=== PATIENT | male | born 1985 | race Caucasian/White ===

== ENCOUNTER 2017-10-22 10:10 | Emergency (ER) | payer MEDICAID ==
--- NOTE | 2017-10-22 10:31 | ED Physician Chart ---
ED Chief Complaint/HPI - Patient Information Date Seen:: 10/22/17 Time Seen:: 10:20 Chief Complaint:: Headache for 2 weeks. History of Present Illness:: Brought in by private auto for the above reason. Pt is Vietnamese speaking. Interpretation is provided by Ivan a nurse at [facility]. Pt has been evaluated at [facility] about 2 weeks ago. DESAI is characterized as constant, bandlike extending from bifrontal to posterior scalp with splastic sensation. Pt has not had any analgesic today. No fever. No N/V/D. No visual changes in terms of blurry vision or diplopia. No weakness or numbness. No ataxia. No h/o head injury. Pt has done a lot of neck bending activities prior to onset of his DESAI. Allergies:: Allergies Allergy/AdvReac Type Severity Reaction Status Date / Time No Known Allergies Allergy Verified 10/22/17 10:20 Vitals:: see Nurse Note. Historian:: Patient Family MD/PCP:: [facility]. LMP:: N/A Review:: Nurse's Note Reviewed ED Review of Systems - Review of Systems General/Constitutional: No fever, No chills, No weight loss, No weakness, No edema Skin: No rash, No bruising Head: Headache, No light-headedness Eyes: No loss of vision, No pain, No diplopia ENT: No earache, No nasal drainage, No sore throat, No tinnitus Neck: No neck pain, No swelling, No thyromegaly, No stiffness, No mass noted Cardio Vascular: No chest pain, No palpitations, No edema Pulmonary: No SOB, No cough, No wheezing GI: No nausea, No vomiting, No diarrhea, No pain Musculoskeletal: No bone or joint pain, No back pain, No muscle pain Endocrine: No polyuria, No polydipsia Psychiatric: No prior psych history Hematopoietic: No bruising, No lymphadenopathy Allergic/Immuno: No urticaria, No angioedema Neurological: No syncope, No focal symptoms, No weakness, No paresthesia, Headache, No dizziness, No confusion, No vertigo ED Past Medical History - Past Medical History Past Medical History: No significant medical hx Family History: Diabetes Melitus (M aunt) Social History: Non Smoker, No Alcohol, No Drug Use, Single, Employed, Other ( lives with his brother.) Employment:: gardening. Surgical History: None Psychiatricy History: None Medication: None Family Medical History - Family Member Maternal History Unknown: Yes ED Physical Exam - Physical Examination General/Constitutional: Awake, Well-developed, well-nourished, Alert, No distress, GCS 15, Non-toxic appearing, Ambulatory Other Gen/Cons comments:: Breathes comfortably, speaks clearly, interacts normally, and ambulates without difficulty. Head: Atraumatic Eyes: Lids, conjuctiva normal, PERRL, EOMI Other Eyes comments:: Fundi: flat disks. Skin: Nl inspection, No rash, No skin lesions, No ecchymosis, Well hydrated, No lymphadenopathy ENMT: External ears, nose nl, TM canals nl, Nasal exam nl, Oropharynx nl Neck: Nontender, Full ROM w/o pain, No nuchal rigidity, No mass, No stridor Respiratory: Nl effort/Exclusion, Clear to Auscultation, No Wheeze/Rhonchi/Rales Cardio Vascular: RRR, No murmur, gallop, rubs GI: No tenderness/rebounding/guarding, No organomegaly, Normal BS's, Nondistended, No mass/bruits Other GI comments:: Abdomen is soft. Extremities: No tenderness or effusion, Full ROM, normal strength in all extremities, No edema Neuro/Psych: Alert/oriented (oriented x 3), DTR's symmetric, Normal sensory exam , Normal motor strength, Judgement/insight normal, Mood normal, Normal gait, No focal deficits Other Neuro/Psych comments:: CN II to XII are grossly intact. Cerebellar exam (F to N, LOCO): normal. ED Septic Shock - . Is Septic Shock (SBP<90, OR Lactate>4 mmol\L) present?: No ED Reassessment (Disposition) - Reassessment Reassessment:: 1130 Pt feels much better. No N/V/D. Pt requests to go home now and does not want further observation/management in hospital. Aftercare instructions have been given. Interpretation has been provided by nurse Love earlier. Reassessment Condition:: Improved - Diagnosis Diagnosis:: Tension DESAI, stable and much improved. - Aftercare/Follow up Instructions Aftercare/Follow-Up Instructions:: Refer to Discharge Instructions Notes:: Bedrest today. Avoid neck bending. May take Tylenol 500 mg tab one tab po q6h prn pain. May also take Motrin 200 mg tab 4 tabs po q8h prn pain, not to take first dose at least 6 hours after Toradol was given here. Headache instructions have been given. F/U with PCP at [facility] in one day for recheck. Return to ER immediately if condition worsens or if any further questions/problems. Medication Prescribed:: None - Patient Disposition Discharge/Transfer:: Home Time:: 11:35 Condition at Disposition:: Stable, Improved
== END 2017-10-22 11:45 | disposition home or self-care (01) ==
LOC: ER 10:10
DX: G44.209 Tension-type headache, unspecified, not intractable (principal)
CPT/HCPCS: 99283; 96372; J1885; Z7502

== ENCOUNTER 2019-08-06 22:39 | Emergency (ER) | payer SELFPAY ==
--- NOTE | 2019-08-06 23:18 | ED Physician Chart ---
ED Chief Complaint/HPI - Patient Information Date Seen:: 08/06/19 Time Seen:: 23:11 Chief Complaint:: Palpitation History of Present Illness:: 34 yo male brought home a THC cookie from work. Pt shared the cookie with his nephew and niece 4-5 hours prior to ER visit. One hour after eating the cookie, pt felt palpitation of the heart and left chest pain. Allergies:: Allergies Allergy/AdvReac Type Severity Reaction Status Date / Time No Known Allergies Allergy Verified 10/22/17 10:20 Vitals:: Vital Signs - 8 hr 08/06/19 22:56 Temp 98.0 F HR 76 RR 20 BP 112/76 O2 Sat % 97 ED Review of Systems - Review of Systems General/Constitutional: No fever, No chills Head: Headache ENT: No nasal drainage Neck: No neck pain Cardio Vascular: Chest pain, Palpitations Pulmonary: No SOB GI: No nausea, No vomiting Musculoskeletal: No bone or joint pain Psychiatric: No prior psych history Neurological: No focal symptoms ED Past Medical History - Past Medical History Past Medical History: No significant medical hx Social History: Smoker, No Alcohol, Illicit Drug Use (Marijuana, meth) Surgical History: None Family Medical History - Family Member Maternal History Unknown: Yes ED Physical Exam - Physical Examination General/Constitutional: Awake, Alert Other Gen/Cons comments:: In moderate distress Head: Atraumatic Eyes: PERRL, EOMI Skin: No skin lesions ENMT: Nasal exam nl Neck: No nuchal rigidity Respiratory: Clear to Auscultation, No Wheeze/Rhonchi/Rales Cardio Vascular: RRR, No murmur, gallop, rubs, NL S1 S2 GI: No tenderness/rebounding/guarding Extremities: normal strength in all extremities Neuro/Psych: No focal deficits ED Labs/Radiology/EKG Results - Lab Results Results: Laboratory Last Values WBC 7.7 Th/cmm (4.8-10.8) 08/06/19 23:30 RBC 4.57 Mil/cmm (4.30-5.70) 08/06/19 23:30 Hgb 14.6 gm/dL (12-16) 08/06/19 23:30 Hct 43.1 % (41.0-60) 08/06/19 23:30 MCV 94.2 fl (80-99) 08/06/19 23:30 MCH 32.0 pg (26.0-30.0) H 08/06/19 23:30 MCHC Differential 33.9 pg (28.0-36.0) 08/06/19 23:30 RDW 11.9 % (11.5-20.0) 08/06/19 23:30 Plt Count 184 Th/cmm (150-400) 08/06/19 23:30 MPV 7.8 fl 08/06/19 23:30 Neutrophils % 75.1 % (40.0-80.0) 08/06/19 23:30 Lymphocytes % 18.4 % (20.0-50.0) L 08/06/19 23:30 Monocytes % 4.9 % (2.0-10.0) 08/06/19 23: Eosinophils % 1.6 % (0.0-5.0) 08/06/19 23: Basophils % 0.0 % (0.0-2.0) 08/06/19 23:30 Sodium 134 mEq/L (136-145) L 08/06/19 23:30 Potassium 3.4 mEq/L (3.5-5.1) L 08/06/19 23:30 Chloride 101 mEq/L (98-107) 08/06/19 23:30 Carbon Dioxide 24.0 mEq/L (21.0-31.0) 08/06/19 23:30 Anion Gap 12.4 (7.0-16.0) 08/06/19 23:30 BUN 23 mg/dL (7-25) 08/06/19 23:30 Creatinine 0.9 mg/dL (0.7-1.3) 08/06/19 23:30 Est GFR ( Amer) > 60.0 ml/min (>90) 08/06/19 23:30 Est GFR (Non-Af Amer) > 60.0 ml/min 08/06/19 23:30 BUN/Creatinine Ratio 25.6 08/06/19 23:30 Glucose 207 mg/dL (70-105) H 08/06/19 23:30 Calcium 8.4 mg/dL (8.6-10.3) L 08/06/19 23:30 Total Bilirubin 0.4 mg/dL (0.3-1.0) 08/06/19 23:30 AST 19 U/L (13-39) 08/06/19 23:30 ALT 17 U/L (7-52) 08/06/19 23:30 Alkaline Phosphatase 59 U/L (34-104) 08/06/19 23:30 Creatine Kinase 238 U/L (30-223) H 08/07/19 00:00 CK-MB (CK-2) 5.3 ng/mL (0.6-6.3) 08/07/19 00:00 Troponin I 0.01 ng/mL (0.01-0.05) 08/06/19 23:30 B-Natriuretic Peptide 8.7 pg/mL (5.0-100.0) 08/06/19 23:30 Total Protein 6.6 gm/dL (6.0-8.3) 08/06/19 23:30 Albumin 4.3 gm/dL (4.2-5.5) 08/06/19 23:30 Globulin 2.3 gm/dL 08/06/19 23:30 Albumin/Globulin Ratio 1.9 (1.0-1.8) H 08/06/19 23:30 Urine Source RANDOM 08/06/19 23:30 Urine Color YELLOW 08/06/19 23:30 Urine Clarity CLEAR (CLEAR) 08/06/19 23:30 Urine pH 6.0 (4.6 - 8.0) 08/06/19 23:30 Ur Specific [place] 1.025 (1.005-1.030) 08/06/19 23:30 Urine Protein NEGATIVE mg/dL (NEGATIVE) 08/06/19 23:30 Urine Glucose (UA) NEGATIVE mg/dL (NEGATIVE) 08/06/19 23:30 Urine Ketones NEGATIVE mg/dL (NEGATIVE) 08/06/19 23:30 Urine Blood NEGATIVE (NEGATIVE) 08/06/19 23:30 Urine Nitrate NEGATIVE (NEGATIVE) 08/06/19 23:30 Urine Bilirubin NEGATIVE (NEGATIVE) 08/06/19 23:30 Urine Urobilinogen 0.2 E.U./dL (0.2 - 1.0) 08/06/19 23:30 Ur Leukocyte Esterase NEGATIVE (NEGATIVE) 08/06/19 23:30 Urine Opiates Screen NEGATIVE (NEGATIVE) 08/06/19 23:30 Urine Methadone Screen NEGATIVE (NEGATIVE) 08/06/19 23:30 Ur Barbiturates Screen NEGATIVE (NEGATIVE) 08/06/19 23:30 Ur Tricyclics Screen NEGATIVE (NEGATIVE) 08/06/19 23:30 Ur Phencyclidine Scrn NEGATIVE (NEGATIVE) 08/06/19 23:30 Amphetamines Screen NEGATIVE (NEGATIVE) 08/06/19 23:30 U Methamphetamines Scrn NEGATIVE (NEGATIVE) 08/06/19 23:30 U Benzodiazepines Scrn NEGATIVE (NEGATIVE) 08/06/19 23:30 U Cocaine Metab Screen NEGATIVE (NEGATIVE) 08/06/19 23:30 U Cannabinoids Screen POSITIVE (NEGATIVE) H 08/06/19 23:30 ED Assessment - Assessment General Assessment: Cannabinoids intoxication Mild hyponatremia Mild hypokalemia Assessment/Comments:: CBC, CMP, troponin, CK, UA, urine drug screen Observe ED Septic Shock - . Is Septic Shock (SBP<90, OR Lactate>4 mmol\L) present?: No - <6hrs of presentation: Vital Signs: Vital Signs - 8 hr 08/06/19 22:56 Temp 98.0 F HR 76 RR 20 BP 112/76 O2 Sat % 97 ED Reassessment (Disposition) - Reassessment Reassessment:: After drink water, pt felt better. Reassessment Condition:: Improved - Patient Disposition Discharge/Transfer:: Home
[2019-08-06 23:39] LABS: URINE SOURCE RANDOM
[2019-08-06 23:44] LABS: % EOSINOPHILS 1.6 % (0.0-5.0); % LYMPHOCYTES 18.4 % (20.0-50.0); % MONOCYTES 4.9 % (2.0-10.0); % NEUTROPHILS 75.1 % (40.0-80.0); EOSINOPHILE ABSOLUTE 0.1 Th/cmm (0.1-0.4); HEMATOCRIT 43.1 % (41.0-60); HEMOGLOBIN 14.6 gm/dL (12-16); LYMPHOCYTE ABSOLUTE 1.4 Th/cmm (1.5-3.0); MEAN CELL VOLUME 94.2 fl (80-99); MEAN CORPUSCULAR HGB CONC 33.9 pg (28.0-36.0); MONOCYTE ABSOLUTE 0.4 Th/cmm (0.3-1.0); NEUTROPHILE ABSOLUTE 5.8 Th/cmm (1.8-8.0); PLATELET COUNT 184 Th/cmm (150-400); RED BLOOD COUNT 4.57 Mil/cmm (4.30-5.70); RED CELL DISTRIBUTION WIDTH 11.9 % (11.5-20.0); WHITE BLOOD COUNT 7.7 Th/cmm (4.8-10.8)
[2019-08-06 23:45] LABS: URINE BILIRUBIN NEGATIVE (NEGATIVE); URINE BLOOD NEGATIVE (NEGATIVE); URINE GLUCOSE (UA) NEGATIVE (NEGATIVE); URINE KETONE NEGATIVE (NEGATIVE); URINE LEUKOCYTE ESTERASE NEGATIVE (NEGATIVE); URINE NITRATE NEGATIVE (NEGATIVE); URINE PROTEIN NEGATIVE (NEGATIVE); URINE UROBILINOGEN 0.2 E.U./dL (0.2 - 1.0)
[2019-08-06 23:54] LABS: URINE CLARITY CLEAR (CLEAR); URINE COLOR YELLOW; URINE MICROSCOPIC INDICATED? NO
[2019-08-07 00:03] LABS: ALB/GLOB RATIO 1.9 (1.0-1.8); ALBUMIN 4.3 gm/dL (4.2-5.5); ALKALINE PHOSPHATASE 59 U/L (34-104); ANION GAP 12.4 (7.0-16.0); BILIRUBIN,TOTAL 0.4 mg/dL (0.3-1.0); BUN - UREA NITROGEN 23 mg/dL (7-25); CALCIUM SERUM 8.4 mg/dL (8.6-10.3); CHLORIDE 101 mEq/L (98-107); CREATININE - SERUM 0.9 mg/dL (0.7-1.3); GFR AFRICAN-AMERICAN > 60.0 ml/min (>90); GFR NON AFRICAN-AMERICAN > 60.0 ml/min; GLUCOSE 207 mg/dL (70-105); POTASSIUM SERUM 3.4 mEq/L (3.5-5.1); SGOT 19 U/L (13-39); SGPT/ALT 17 U/L (7-52); SODIUM SERUM 134 mEq/L (136-145); TOTAL PROTEIN,SERUM 6.6 gm/dL (6.0-8.3)
[2019-08-07 00:49] LABS: AMPHETAMINE URINE NEGATIVE (NEGATIVE); BARBITURATES URINE NEGATIVE (NEGATIVE); BENZODIAZEPINES QUAL URINE NEGATIVE (NEGATIVE); CANNABINOID THC POSITIVE (NEGATIVE); COCAINE METABOLITE QUAL URINE NEGATIVE (NEGATIVE); METHADONE URINE NEGATIVE (NEGATIVE); METHAMPHETAMINES QUAL URINE NEGATIVE (NEGATIVE); OPIATES (MORPHINE) QUAL. URINE NEGATIVE (NEGATIVE); PHENCYCLIDINE (PCP) URINE NEGATIVE (NEGATIVE); TRICYCLICS (TCA) QUAL. URINE NEGATIVE (NEGATIVE)
[2019-08-08 08:11] LABS: A1C 5.4 % (4.8-5.6)
== END 2019-08-07 02:10 | disposition home or self-care (01) ==
LOC: ER 22:39
DX: F12.129 Cannabis abuse with intoxication, unspecified (principal); E87.1 Hypo-osmolality and hyponatremia; E87.6 Hypokalemia; F17.200 Nicotine dependence, unspecified, uncomplicated
CPT/HCPCS: 36415-UA; 80053-TC; 80307; 81003-TC; 82550-TC; 82553; 83036-90; 83880-TC; 84484-TC; 85025-TC; 93005